=== PATIENT | female | born 1970 | race Caucasian/White ===

== ENCOUNTER → 2022-08-07 12:11 | Outpatient (BNVA) | payer BC, SELFPAY | PROVIDERS: PCP Obstetrics & Gynecology; Referring Provider Internal Medicine; Visit Provider Internal Medicine | DX: R76.8 Other specified abnormal immunological findings in serum (principal) | CPT/HCPCS: 72040; 73120; 73600; 80053; 81003; 82306; 82533; 82550; 82784; 83516; 83735; 84100; 84443; 85025; 85651; 86140; 86160; 86162; 86200; 86235; 86255; 86376; 86704; 86803; 87340 ==